=== PATIENT | female | born 1945 | race Two or more races ===

== ENCOUNTER 2023-04-17 16:23 | Emergency (ER) | payer MEDICARE, OTHER ==
[~2023-04-17] VITALS: Ht 167.6 cm; Wt 59.3 kg
[~2023-04-17 16:23] MED LIST: BIOT5000 PO; DOXY20TA3 PO; ESCI10TA PO; EZET10TA81 PO; LEVO100T PO; MULT200T12 PO; [UNRECOGNIZED DRUG - OTHER] PO
[2023-04-17 16:31] VITALS: BP 136/57; PULSE 83; RESP 16; TEMP 98; O2SAT 97
[2023-04-17] MEDS ORDERED: bacitracin 15gm ointment TP ONE (17:40)
== END 2023-04-17 18:21 | disposition home or self-care (01) ==
LOC: ER 16:24
DX: S00.81XA Abrasion of other part of head, initial encounter (principal); S09.90XA Unspecified injury of head, initial encounter; Z88.5 Allergy status to narcotic agent; Z79.2 Long term (current) use of antibiotics; Z79.899 Other long term (current) drug therapy; W19.XXXA Unspecified fall, initial encounter; Y93.89 Activity, other specified; Y92.89 Other specified places as the place of occurrence of the external cause; Y99.8 Other external cause status
CPT/HCPCS: 70450; 99284; A6449